=== PATIENT | male | born 1955 | race Caucasian/White ===

== ENCOUNTER 2022-01-31 08:32 | Outpatient (CLI) | payer MEDICARE, BC | END 2022-01-31 08:33 | disposition home or self-care (01) | LOC: CSHMRI 08:32 | PROVIDERS: ATTEND Orthopaedic Surgery | DX: M48.061 Spinal stenosis, lumbar region without neurogenic claudication (principal); M47.816 Spondylosis without myelopathy or radiculopathy, lumbar region; M47.817 Spondylosis without myelopathy or radiculopathy, lumbosacral region | CPT/HCPCS: 72148 ==

== ENCOUNTER 2022-02-24 16:47 | Outpatient (CLI) | payer MEDICARE, BC | END 2022-02-24 16:48 | disposition home or self-care (01) | LOC: CSHRAD 16:47 | PROVIDERS: ATTEND Internal Medicine | DX: J40 Bronchitis, not specified as acute or chronic (principal) | CPT/HCPCS: 71046 ==

== ENCOUNTER 2022-07-29 09:47 | Outpatient (CLI) | payer MEDICARE, BC | END 2022-07-29 09:48 | disposition home or self-care (01) | LOC: CSHULT 09:47 | PROVIDERS: ATTEND Internal Medicine | DX: K76.0 Fatty (change of) liver, not elsewhere classified (principal); R74.8 Abnormal levels of other serum enzymes | CPT/HCPCS: 76700 ==

== ENCOUNTER 2024-01-16 06:54 | Emergency (ER) | payer MEDICARE, BC ==
[2024-01-16] MEDS ORDERED: Ondansetron PF 4 MG/2 ML Vial ONE (07:22)
[2024-01-16] MEDS ORDERED: Morphine 4 MG/ML VIAL ONE (07:22)
[2024-01-16 07:35] LABS: #Basophils 0.09 10x3/uL (0.0-0.2); #Eosinphils 0.47 10x3/uL (0.0-0.5); #Neutrophils 6.93 10x3/uL (1.5-8.4); %Basophils 0.8 % (0.0-2.0); %Eosinophils 4.1 % (0.0-6.0); %Lymphocytes 26.4 % (18.0-47.0); %Monocytes 7.8 % (0.0-10.0); %Neutrophils 60.5 % (40.0-75.0); Hematocrit 46.4 % (38.8-50.0); Hemoglobin 15.6 g/dL (13.5-17.5); Mean Corpuscular HGB CONC 33.6 g/dL (32.0-36.0); Mean Corpuscular Hemoglobin 28.8 pg (27.0-33.0); Mean Corpuscular Volume 85.6 fL (81.2-95.1); Mean Platelet Volume 9.6 fL (7.4-10.4); Platelet Count 266 10x3/uL (150-450); RBC Distribution Width 13.4 % (11.5-14.5); Red Blood Cell (RBC) Count 5.42 10x6/uL (4.32-5.72); White Blood Cell (WBC) Count 11.5 10x3/uL (3.5-10.5)
[2024-01-16 07:47] LABS: ALT (SGPT) 60 U/L (8-55); AST (SGOT) 36 U/L (5-34); Albumin 4.3 g/dL (3.4-4.8); Alkaline Phosphatase 71 U/L (40-110); Anion Gap 18 mmol/L (10-20); BUN (Urea Nitrogen) 14 mg/dL (8.4-25.7); Bilirubin, Total 0.6 mg/dL (0.2-1.2); Calc. Creatinine Clearance 0 mL/min (70-130); Calcium 10.1 mg/dL (7.8-10.44); Carbon Dioxide 22 mmol/L (23-31); Chloride 105 mmol/L (98-107); Estimated GFR 61; Globulin 2.8 g/dL (2.4-3.5); Glucose 197 mg/dL (80-115); Lipase 44 U/L (8-78); Potassium 4.3 mmol/L (3.5-5.1); Protein, Total 7.1 g/dL (5.8-8.1); Sodium 141 mmol/L (136-145)
[2024-01-16] MEDS ORDERED: Ketorolac Tromethamine 30 MG (1 mL) VIAL ONE (07:50)
[2024-01-16 07:53] LABS: Troponin I Less than 0.010 ng/mL (< 0.028)
[2024-01-16] MEDS ORDERED: Iopamidol 300 61% 100 ML VIAL FS ONE (09:25)
[2024-01-16 10:17] LABS: Bilirubin Neg (Negative); Blood, Urine 250 (Negative); Clarity Clear (Clear); Glucose, Urine (Dipstick) Normal (Negative); Ketone, Urine Negative (Negative); Leukocyte Negative (Negative); Nitrite Negative (Negative); Protein, Urine (Dipstick) 30 mg/dl (Neg-Trace); Specific Gravity, Urine 1.015 (1.005-1.030); Urobilinogen Normal mg/dL (Less than 2)
[2024-01-16 10:34] LABS: CAUTI Indications for Culture Pelvic or flank pain; RBC/HPF Greater than 50 HPF (0-3); WBC/HPF None Seen HPF (0-3)
[2024-01-16 10:35] LABS: Bacteria/HPF None Seen HPF (None Seen); Calcium Oxalate Crystals 1+ HPF (None Seen); Squamous Epithelial 0-3 HPF (0-3); Urine Culture Reflex No No
== END 2024-01-16 10:45 | disposition home or self-care (01) ==
LOC: CSHERS 06:54
DX: N20.0 Calculus of kidney (principal); I10 Essential (primary) hypertension
CPT/HCPCS: 74177; 80053; 81001; 83690; 84484; 85025; 93005; J1885; J2272; J2405; 96361; 96374; 96375; Q9967

== ENCOUNTER 2025-02-18 07:10 | Outpatient (CLI) | payer MEDICARE, BC ==
[2025-02-18 08:58] LABS: Estimated GFR - POC 81.0
[2025-02-18] MEDS ORDERED: Iopamidol 300 61% 100 ML VIAL FS ONE (10:13)
== END 2025-02-18 07:11 | disposition home or self-care (01) ==
LOC: CSHCT 07:10
PROVIDERS: ATTEND Urology
DX: N28.1 Cyst of kidney, acquired (principal); N20.0 Calculus of kidney
CPT/HCPCS: 74178; 82565